=== PATIENT | female | born 1985 | race Asian ===

== ENCOUNTER 2023-11-13 10:26 | Inpatient (IN) | payer OTHER ==
[2023-11-11 12:56] LABS: Hematocrit 34.7 % (34.9-44.5); Hemoglobin 11.9 g/dL (12.0-15.5); Mean Corpuscular HGB CONC 34.3 g/dL (32.0-36.0); Mean Corpuscular Hemoglobin 28.1 pg (27.0-33.0); Mean Corpuscular Volume 81.8 fl (81.6-98.3); Mean Platelet Volume 9.6 fl (7.4-10.4); Platelet Count 278 10x3/uL (150-450); Red Blood Cell (RBC) Count 4.24 10x6/uL (3.90-5.03); White Blood Cell (WBC) Count 8.2 10x3/uL (3.5-10.5)
[2023-11-11 13:23] LABS: Syphilis Antibody Nonreactive (Nonreactive); Syphilis Antibody Index 0.07 S/CO (<1.00 Non-Reactive)
[2023-11-11 13:24] LABS: HBSAg Index 0.18 S/CO (0-0.99); Hep B Surf Ag Non-Reactive S/CO (NonReactive)
[2023-11-13] MEDS ORDERED: diphenhydrAMINE 50 MG/ML VIAL IVP PRN (10:44)
[2023-11-13] MEDS ORDERED: HYDROmorphone 0.5 MG/0.5 ML SYRINGE SLOW IVP PRN (10:44)
[2023-11-13] MEDS ORDERED: Promethazine HCl 25 MG SUPP PR PRN (10:44)
[2023-11-13] MEDS ORDERED: Ondansetron PF 4 MG/2 ML Vial IVP PRN ×4 (10:44→15:56)
[2023-11-13] MEDS ORDERED: Moisturizing Cream (Eucerin) 113 GM JAR TOP PRN (10:44)
[2023-11-13] MEDS ORDERED: fentaNYL 50 mcg/mL 1 mL Vial SLOW IVP PRN (10:44)
[2023-11-13] MEDS ORDERED: Ketorolac Tromethamine 30 MG (1 mL) VIAL IVP PRN (10:44)
[2023-11-13] MEDS ORDERED: Meperidine HCl/PF 25 MG (1 mL) VIAL SLOW IVP PRN (10:44)
[2023-11-13] MEDS ORDERED: Naloxone HCl 0.4 mg/ml Vial IVP PRN ×2 (10:44)
[2023-11-13] MEDS ORDERED: Naloxone HCl 0.4 mg/ml Vial IV PRN (10:44)
[2023-11-13] MEDS ORDERED: Promethazine HCl 25 MG/ML VIAL IM PRN ×3 (10:44→16:57)
[2023-11-13] MEDS ORDERED: Communication Order-Pharmacy FS SCH (10:45)
[2023-11-13] MEDS ORDERED: Ketorolac Tromethamine 30 MG (1 mL) VIAL IVP SCH (10:45)
[2023-11-13 10:54] VITALS: BMI 34.9
[2023-11-13] MEDS ORDERED: fentaNYL 50 mcg/mL 1 mL Vial ONE (11:16)
[2023-11-13] MEDS ORDERED: Morphine PF 10 MG/10 ML VIAL ONE (11:16)
[2023-11-13] MEDS ORDERED: Clindamycin/D5W 900 MG in Premix 1 BAG IVPB SCH (11:26)
[2023-11-13] MEDS ORDERED: Bicitra 30 ML UDCUP PO PRN (11:26)
[2023-11-13] MEDS ORDERED: Oxytocin 30 units/NS 500 ML 500 ML IV SCH ×2 (11:26→15:56)
[2023-11-13] MEDS ORDERED: hydrALAZINE 20 MG/ML VIAL SLOW IVP PRN ×2 (11:26→15:56)
[2023-11-13] MEDS ORDERED: Lactated Ringer's 1,000 ML IV SCH (11:26)
[2023-11-13] MEDS ORDERED: Famotidine/PF 20 mg/2ml Vial SLOW IVP PRN (11:26)
[2023-11-13] MEDS ORDERED: Clindamycin/D5W 900 mg/50 ml Premix Bag ONE (11:52)
[2023-11-13] MEDS ORDERED: ADMIXTURE FEE IVPB SCH (12:00)
[2023-11-13] MEDS ORDERED: SODIUM CHLORIDE IVPB SCH (12:00)
[2023-11-13] MEDS ORDERED: GENTAMICIN IVPB SCH (12:00)
[2023-11-13] MEDS ORDERED: Ondansetron PF 4 MG/2 ML Vial ONE (12:32)
[2023-11-13] MEDS ORDERED: Dexamethasone 4 mg/ml Vial ONE (12:32)
[2023-11-13] MEDS ORDERED: Phenylephrine 10 MG/ML VIAL ONE (12:32)
[2023-11-13] MEDS ORDERED: Oxytocin 10 UNITS/ML VIAL ONE (12:33)
[2023-11-13] MEDS ORDERED: diphenhydrAMINE 50 MG/ML VIAL ONE (12:42)
[2023-11-13] MEDS ORDERED: Simethicone Chewable 80 MG TAB PO PRN (15:56)
[2023-11-13] MEDS ORDERED: HYDROcodone/Acetaminophen 5/325 mg Tablet PO PRN (15:56)
[2023-11-13] MEDS ORDERED: Boostrix 0.5 ML (Tdap) VIAL (>/=7 yrs of age) IM ONE (15:56)
[2023-11-13] MEDS ORDERED: Bisacodyl 10 MG SUPP PR PRN (15:56)
[2023-11-13] MEDS ORDERED: diphenhydrAMINE 25 MG CAP PO PRN (15:56)
[2023-11-13] MEDS ORDERED: Lanolin Ointment 7 GM TUBE TOP PRN (15:56)
[2023-11-13] MEDS: Ketorolac Tromethamine 30 MG (1 mL) VIAL IVP SCH ×2 (17:06→23:11)
[2023-11-13] MEDS: Ferrous Sulfate 325 MG TAB PO SCH (22:54)
[2023-11-13] MEDS: Docusate 100 MG CAP PO SCH (23:11)
[2023-11-14 05:16] LABS: Hematocrit 28.9 % (34.9-44.5); Hemoglobin 9.8 g/dL (12.0-15.5); Mean Corpuscular HGB CONC 33.9 g/dL (32.0-36.0); Mean Corpuscular Hemoglobin 27.8 pg (27.0-33.0); Mean Corpuscular Volume 81.9 fl (81.6-98.3); Platelet Count 226 10x3/uL (150-450); RBC Distribution Width 14.7 % (11.5-14.5); Red Blood Cell (RBC) Count 3.53 10x6/uL (3.90-5.03)
[2023-11-14] MEDS: Ketorolac Tromethamine 30 MG (1 mL) VIAL IVP SCH ×2 (05:21→10:19)
[2023-11-14] MEDS: HYDROcodone/Acetaminophen 5/325 mg Tablet PO PRN ×3 (08:25→21:33)
[2023-11-14] MEDS: Docusate 100 MG CAP PO SCH ×2 (08:25→21:33)
[2023-11-14] MEDS: Ferrous Sulfate 325 MG TAB PO SCH ×2 (08:25→21:33)
[2023-11-14] MEDS: Prenatal Vitamin 1 TAB PO SCH (08:26)
[2023-11-14] MEDS ORDERED: hydrOXYzine 10 MG TAB PO PRN (08:28)
[2023-11-14] MEDS: Ibuprofen 800 MG TAB PO SCH ×2 (16:21→21:33)
[2023-11-15 00:59] VITALS: TEMP 97.9
[2023-11-15] MEDS: Ibuprofen 800 MG TAB PO SCH ×2 (05:38→13:53)
[2023-11-15] MEDS: HYDROcodone/Acetaminophen 5/325 mg Tablet PO PRN (05:39)
[2023-11-15] MEDS: Docusate 100 MG CAP PO SCH (07:51)
[2023-11-15] MEDS: Prenatal Vitamin 1 TAB PO SCH (07:51)
[2023-11-15] MEDS: Ferrous Sulfate 325 MG TAB PO SCH (07:51)
[2023-11-15 08:14] VITALS: BP 118/68
== END 2023-11-15 14:05 | disposition home or self-care (01) | DRG 788 ==
LOC: CSHLD 10:26 → CSHPP 15:00
PROVIDERS: ADMIT Obstetrics & Gynecology; ATTEND Obstetrics & Gynecology
PROC: 10D00Z1 Extraction of Products of Conception, Low, Open Approach (ICD-10-PCS; principal; 2023-11-13)
DX: O34.211 Maternal care for low transverse scar from previous cesarean delivery (principal); Z3A.37 37 weeks gestation of pregnancy; Z37.0 Single live birth; Z88.8 Allergy status to other drugs, medicaments and biological substances; O24.420 Gestational diabetes mellitus in childbirth, diet controlled
CPT/HCPCS: 36415; 51702; 85027; 86780; 86850; 86900; 86901; 87340; J1100; J1200; J1885; J2274; J2370; J2405; J2590; J3010; J3490